=== PATIENT | female | born 1940 | race Caucasian/White ===

== ENCOUNTER 2022-01-20 17:18 | Inpatient (IN) | payer MEDICARE, SELFPAY ==
[~2022-01-20] VITALS: Ht 157.5 cm; Wt 94.0 kg
[2022-01-20] MEDS ORDERED: NS 500 ML IV ONE (22:15)
[2022-01-20] MEDS: NS 1,000 ML IV SCH (22:15)
[2022-01-20 23:01] LABS: BASO # 0.1 10^3/uL (0.0-0.2); BASO % 0.3 % (0.0-1.0); EOS # 0.2 10^3/uL (0.0-0.5); EOS % 1.1 % (0.0-3.0); HEMATOCRIT 32.7 % (36.0-47.0); HEMOGLOBIN 10.8 g/dl (12.0-15.5); LYMPH % 12.6 % (24.0-44.0); MEAN CORPUSCULAR HEMOGLOBIN 30.3 pg (27.0-33.0); MEAN CORPUSCULAR VOLUME 91.6 fl (80.0-96.0); MONO # 1.3 10^3/uL (0.0-0.8); MONO % 8.3 % (2.0-8.0); NEUTROPHILS # 11.9 10^3/uL (1.5-8.5); NEUTROPHILS % 77.1 % (36.0-66.0); PLATELET COUNT, AUTOMATED 223 10^3/uL (150-450); RED BLOOD COUNT 3.57 10^6/uL (4.00-5.40); WHITE BLOOD COUNT 15.5 10^3/uL (4.0-10.0)
[2022-01-20 23:25] LABS: ALBUMIN 2.7 GM/DL (3.2-5.2); ALT/SGPT 14 U/L (12-78); BLOOD UREA NITROGEN 15 MG/DL (7-18); CALCIUM LEVEL 8.3 MG/DL (8.8-10.2); CARBON DIOXIDE LEVEL 22 MEQ/L (21-32); CHLORIDE LEVEL 115 MEQ/L (98-107); CREATININE FOR GFR 0.82 MG/DL (0.55-1.30); GLOMERULAR FILTRATION RATE > 60.0 (>32); GLUCOSE, FASTING 129 MG/DL (70-100); MAGNESIUM LEVEL 2.1 MG/DL (1.8-2.4); POTASSIUM SERUM 3.9 MEQ/L (3.5-5.1); SODIUM LEVEL 146 MEQ/L (136-145); TOTAL PROTEIN 5.8 GM/DL (6.4-8.2)
[2022-01-20 23:59] VITALS: BP 122/58
[2022-01-21] MEDS ORDERED: GLUCOSE 4GM CHEW TABLET PO PRN (00:20)
[2022-01-21] MEDS ORDERED: DEXTROSE 50% 50 ML SYRINGE IV PRN (00:20)
[2022-01-21] MEDS ORDERED: GLUCAGON INJ 1MG VIAL SC PRN (00:20)
[2022-01-21] MEDS ORDERED: DILUENT IV ONE (01:00)
[2022-01-21] MEDS ORDERED: PROTHROMBIN COMPLEX CONCEN IV ONE (01:00)
[2022-01-21 02:10] LABS: HEMATOCRIT 28.9 % (36.0-47.0); HEMOGLOBIN 9.5 g/dl (12.0-15.5)
[2022-01-21 04:00] VITALS: BP 106/49
[2022-01-21] MEDS: NYSTATIN 100,000 UNITS/GM TOPICAL PWD 15 GM TOP SCH ×3 (05:16→21:54)
[2022-01-21] MEDS: INSULIN LISPRO (NovoLOG) PER UNIT SC SCH ×3 (06:27→17:21)
[2022-01-21] MEDS: NS 1,000 ML IV SCH (06:28)
[2022-01-21 08:00] VITALS: BP 124/59
[2022-01-21] MEDS: D5W/0.45% SODIUM CHLORIDE 1,000 ML IV SCH ×2 (08:00→21:53)
[2022-01-21 08:41] LABS: HEMATOCRIT 28.6 % (36.0-47.0); HEMOGLOBIN 9.3 g/dl (12.0-15.5)
[2022-01-21] MEDS ORDERED: AMLO1TAB25 PO (08:43)
[2022-01-21] MEDS ORDERED: APAP325T4 PO (08:43)
[2022-01-21] MEDS ORDERED: SIMV20TA22 PO (08:43)
[2022-01-21] MEDS ORDERED: LEVO50TA5 PO (08:43)
[2022-01-21] MEDS ORDERED: ALLO300T2 PO (08:43)
[2022-01-21] MEDS ORDERED: VITA100093 PO (08:43)
[2022-01-21] MEDS ORDERED: GLIP10TA18 PO (08:43)
[2022-01-21] MEDS ORDERED: POLYOPD OU (08:43)
[2022-01-21] MEDS ORDERED: METO1TAB33 PO (08:43)
[2022-01-21] MEDS ORDERED: FERR1TAB8 PO (08:43)
[2022-01-21] MEDS ORDERED: ELIQ2.5T PO (08:43)
[2022-01-21] MEDS ORDERED: MELA3TAB29 PO (08:43)
[2022-01-21] MEDS ORDERED: MAGN400T35 PO (08:43)
[2022-01-21] MEDS ORDERED: OCUVCAP PO (08:43)
[2022-01-21] MEDS ORDERED: LOSA100T45 PO (08:43)
[2022-01-21] MEDS ORDERED: HOME MED LIST COMPLETE! XX SCH (08:45)
[2022-01-21 08:54] LABS: BLOOD UREA NITROGEN 16 MG/DL (7-18); CALCIUM LEVEL 8.1 MG/DL (8.8-10.2); CARBON DIOXIDE LEVEL 23 MEQ/L (21-32); CHLORIDE LEVEL 116 MEQ/L (98-107); CREATININE FOR GFR 0.78 MG/DL (0.55-1.30); GLOMERULAR FILTRATION RATE > 60.0 (>32); GLUCOSE, FASTING 146 MG/DL (70-100); SODIUM LEVEL 148 MEQ/L (136-145)
[2022-01-21 13:56] LABS: HEMATOCRIT 27.5 % (36.0-47.0); HEMOGLOBIN 8.9 g/dl (12.0-15.5)
[2022-01-21 16:02] VITALS: BP 148/65
[2022-01-21 20:00] VITALS: BP 126/59
[2022-01-21 20:28] LABS: HEMATOCRIT 26.4 % (36.0-47.0); HEMOGLOBIN 8.8 g/dl (12.0-15.5)
[2022-01-22] VITALS (7 sets, daily range): BP systolic 118–177; BP diastolic 59–76
[2022-01-22 02:17] LABS: HEMATOCRIT 27.4 % (36.0-47.0); HEMOGLOBIN 8.8 g/dl (12.0-15.5)
[2022-01-22] MEDS: INSULIN LISPRO (NovoLOG) PER UNIT SC SCH ×3 (08:20→18:18)
[2022-01-22 08:27] LABS: HEMATOCRIT 25.8 % (36.0-47.0); HEMOGLOBIN 8.4 g/dl (12.0-15.5); MEAN CORPUSCULAR HEMOGLOBIN 29.5 pg (27.0-33.0); MEAN CORPUSCULAR HGB CONC 32.6 g/dl (32.0-36.5); MEAN CORPUSCULAR VOLUME 90.5 fl (80.0-96.0); PLATELET COUNT, AUTOMATED 205 10^3/uL (150-450); RED BLOOD COUNT 2.85 10^6/uL (4.00-5.40); WHITE BLOOD COUNT 12.5 10^3/uL (4.0-10.0)
[2022-01-22] MEDS: NYSTATIN 100,000 UNITS/GM TOPICAL PWD 15 GM TOP SCH ×2 (08:31→21:05)
[2022-01-22 08:48] LABS: BLOOD UREA NITROGEN 10 MG/DL (7-18); CALCIUM LEVEL 7.9 MG/DL (8.8-10.2); CARBON DIOXIDE LEVEL 23 MEQ/L (21-32); CHLORIDE LEVEL 116 MEQ/L (98-107); CREATININE FOR GFR 0.66 MG/DL (0.55-1.30); GLOMERULAR FILTRATION RATE > 60.0 (>32); GLUCOSE, FASTING 145 MG/DL (70-100); POTASSIUM SERUM 3.4 MEQ/L (3.5-5.1); SODIUM LEVEL 146 MEQ/L (136-145)
[2022-01-22] MEDS ORDERED: FIORICET TAB PO PRN (09:20)
[2022-01-22] MEDS ORDERED: ACETAMINOPHEN TAB 650MG DOSE (2X325MG) PO PRN (09:20)
[2022-01-22] MEDS: allopurinoL 300 MG TAB PO SCH (12:04)
[2022-01-22] MEDS: D5W/0.45% SODIUM CHLORIDE 1,000 ML IV SCH (12:04)
[2022-01-22] MEDS: LEVOTHYROXINE 50MCG TABLET (0.05MG) PO SCH (12:04)
[2022-01-22 14:40] LABS: HEMATOCRIT 30.6 % (36.0-47.0); HEMOGLOBIN 9.8 g/dl (12.0-15.5); MEAN CORPUSCULAR HEMOGLOBIN 29.7 pg (27.0-33.0); MEAN CORPUSCULAR VOLUME 92.7 fl (80.0-96.0); PLATELET COUNT, AUTOMATED 244 10^3/uL (150-450); WHITE BLOOD COUNT 16.1 10^3/uL (4.0-10.0)
[2022-01-22] MEDS ORDERED: INSULIN LISPRO (NovoLOG) PER UNIT SC SCH (21:00)
[2022-01-22] MEDS ORDERED: RAMELTEON 8 MG TAB (ROZEREM) PO SCH (21:00)
[2022-01-22] MEDS ORDERED: SIMVASTATIN 20 MG TAB PO SCH (21:00)
[2022-01-23 00:20] VITALS: BP 141/64
[2022-01-23] MEDS: D5W/0.45% SODIUM CHLORIDE 1,000 ML IV SCH (02:32)
[2022-01-23 04:37] VITALS: BP 134/60
[2022-01-23 05:58] LABS: HEMATOCRIT 25.3 % (36.0-47.0); MEAN CORPUSCULAR HEMOGLOBIN 29.4 pg (27.0-33.0); MEAN CORPUSCULAR HGB CONC 31.6 g/dl (32.0-36.5); PLATELET COUNT, AUTOMATED 210 10^3/uL (150-450); RED BLOOD COUNT 2.72 10^6/uL (4.00-5.40)
[2022-01-23] MEDS: LEVOTHYROXINE 50MCG TABLET (0.05MG) PO SCH (05:59)
[2022-01-23 06:28] LABS: BLOOD UREA NITROGEN 7 MG/DL (7-18); CALCIUM LEVEL 7.9 MG/DL (8.8-10.2); CARBON DIOXIDE LEVEL 21 MEQ/L (21-32); CHLORIDE LEVEL 117 MEQ/L (98-107); CREATININE FOR GFR 0.76 MG/DL (0.55-1.30); GLOMERULAR FILTRATION RATE > 60.0 (>32); GLUCOSE, FASTING 159 MG/DL (70-100); SODIUM LEVEL 146 MEQ/L (136-145)
[2022-01-23] MEDS: allopurinoL 300 MG TAB PO SCH (08:44)
[2022-01-23] MEDS: NYSTATIN 100,000 UNITS/GM TOPICAL PWD 15 GM TOP SCH (08:44)
[2022-01-23] MEDS: INSULIN LISPRO (NovoLOG) PER UNIT SC SCH ×2 (08:45→12:35)
[2022-01-23 08:59] VITALS: BP 132/60
[2022-01-23 12:37] LABS: HEMATOCRIT 29.5 % (36.0-47.0); HEMOGLOBIN 9.7 g/dl (12.0-15.5); MEAN CORPUSCULAR HEMOGLOBIN 31.3 pg (27.0-33.0); MEAN CORPUSCULAR HGB CONC 32.9 g/dl (32.0-36.5); MEAN CORPUSCULAR VOLUME 95.2 fl (80.0-96.0); PLATELET COUNT, AUTOMATED 284 10^3/uL (150-450); WHITE BLOOD COUNT 14.4 10^3/uL (4.0-10.0)
[2022-01-23] MEDS ORDERED: METO1TAB7 PO (13:02)
[2022-01-23] MEDS ORDERED: NYST10006 TOP (13:02)
[2022-01-23] MEDS ORDERED: LOSA50TA28 PO (13:02)
[2022-01-23] MEDS ORDERED: POTASSIUM CHLORIDE 10MEQ SR TABLET PO ONE (13:10)
== END 2022-01-23 14:17 | disposition home health service (06) | DRG 378 ==
LOC: EDBD 20:29 → M PCU 20:29
PROVIDERS: ADMIT Internal Medicine; ATTEND Internal Medicine
DX: K57.93 Diverticulitis of intestine, part unspecified, without perforation or abscess with bleeding (principal); D62 Acute posthemorrhagic anemia; M10.9 Gout, unspecified; E03.9 Hypothyroidism, unspecified; Z79.01 Long term (current) use of anticoagulants; I48.91 Unspecified atrial fibrillation; I10 Essential (primary) hypertension; E11.9 Type 2 diabetes mellitus without complications; L30.4 Erythema intertrigo; Z79.899 Other long term (current) drug therapy; Z88.6 Allergy status to analgesic agent; Z88.8 Allergy status to other drugs, medicaments and biological substances; I25.2 Old myocardial infarction; Z98.41 Cataract extraction status, right eye; Z98.42 Cataract extraction status, left eye

== ENCOUNTER 2023-03-21 18:42 | Inpatient (IN) | payer MEDICARE ==
[~2023-03-21] VITALS: Ht 165.1 cm; Wt 86.6 kg
[~2023-03-21 18:42] MED LIST: ALLO300T2 PO; AMLO1TAB25 PO; APAP325T4 PO; ARTIDRO4 OU; ELIQ2.5T PO; FERR1TAB8 PO; GLIP10TA18 PO; LEVO50TA5 PO; LOSA100T46 PO; LOSA50TA28 PO; MAGN400T35 PO; MELA3TAB29 PO; METO1TAB33 PO; METO1TAB7 PO; NYST10006 TOP; OCUVCAP PO; SIMV20TA22 PO; VITA100093 PO
[2023-03-21 22:41] VITALS: BP 156/96; TEMP 98.1; O2SAT 98
[2023-03-22] MEDS ORDERED: ACETAMINOPHEN TAB 650MG DOSE (2X325MG) PO PRN (00:50)
[2023-03-22] MEDS ORDERED: MOM 30ML SUSPENSION UDC PO PRN (00:50)
[2023-03-22] MEDS ORDERED: cefTRIAXone SOD 2GM VIAL IM SCH (00:50)
[2023-03-22] MEDS ORDERED: GLUCOSE 4GM CHEW TABLET PO PRN (00:55)
[2023-03-22] MEDS ORDERED: DEXTROSE 50% 50ML SYRINGE IV PRN (00:55)
[2023-03-22] MEDS ORDERED: GLUCAGON INJ 1MG VIAL SC PRN (00:55)
[2023-03-22 02:09] LABS: HEMATOCRIT 35.8 % (36.0-47.0); HEMOGLOBIN 11.7 g/dl (12.0-15.5); MEAN CORPUSCULAR HEMOGLOBIN 29.5 pg (27.0-33.0); MEAN CORPUSCULAR HGB CONC 32.7 g/dl (32.0-36.5); MEAN CORPUSCULAR VOLUME 90.4 fl (80.0-96.0); PLATELET COUNT, AUTOMATED 274 10^3/uL (150-450); RED BLOOD COUNT 3.96 10^6/uL (4.00-5.40); WHITE BLOOD COUNT 11.2 10^3/uL (4.0-10.0)
[2023-03-22 02:33] LABS: ALBUMIN 2.4 G/DL (3.2-5.2); ALKALINE PHOSPHATASE 157 U/L (46-116); ALT/SGPT 37 U/L (7.0-40); AST/SGOT 36 U/L (<34); BILIRUBIN,TOTAL 0.6 MG/DL (0.3-1.2); BLOOD UREA NITROGEN 12 MG/DL (9-23); CALCIUM LEVEL 8.5 MG/DL (8.3-10.6); CARBON DIOXIDE LEVEL 28 MMOL/L (20-31); CHLORIDE LEVEL 109 MMOL/L (98-107); CREATININE FOR GFR 0.79 MG/DL (0.55-1.30); GLOMERULAR FILTRATION RATE > 60.0 (>32); GLUCOSE, FASTING 84 MG/DL (74-106); POTASSIUM SERUM 3.8 MMOL/L (3.5-5.1); SODIUM LEVEL 147 MMOL/L (136-145); TOTAL PROTEIN 5.9 G/DL (5.7-8.2)
[2023-03-22 05:13] VITALS: BP 168/96; TEMP 98.6; O2SAT 98
[2023-03-22] MEDS ORDERED: LEVOTHYROXINE 50MCG TABLET (0.05MG) PO SCH (06:00)
[2023-03-22] MEDS ORDERED: ATOR1TAB21 PO (06:38)
[2023-03-22] MEDS ORDERED: LOSA50TA28 PO (06:39)
[2023-03-22] MEDS ORDERED: METO1TAB7 PO (06:39)
[2023-03-22] MEDS ORDERED: POTA-151 PO (06:39)
[2023-03-22] MEDS ORDERED: HOME MED LIST COMPLETE! XX SCH (06:40)
[2023-03-22] MEDS: INSULIN LISPRO (NovoLOG) PER UNIT SC SCH ×2 (07:30→12:39)
[2023-03-22] MEDS ORDERED: RAMELTEON 8 MG TAB (ROZEREM) PO PRN (07:35)
[2023-03-22] MEDS ORDERED: VITAMIN D 1,000 INTERNATIONAL UNITS TABLET PO SCH (09:00)
[2023-03-22] MEDS ORDERED: LOSARTAN 50MG TABLET PO SCH (09:00)
[2023-03-22] MEDS ORDERED: allopurinoL 300 MG TAB PO SCH (09:00)
[2023-03-22] MEDS ORDERED: cefTRIAXone SOD 2 GM in D5W MINI-BAG PLUS 50 ML IV SCH (09:00)
[2023-03-22] MEDS ORDERED: APIXABAN 2.5 MG TAB (ELIQUIS) PO SCH (09:00)
[2023-03-22] MEDS ORDERED: POTASSIUM CHLORIDE 10MEQ SR TABLET PO SCH (09:00)
[2023-03-22] MEDS ORDERED: MAGNESIUM OXIDE 400MG TAB (MAG-OX) PO SCH (09:00)
[2023-03-22 09:45] VITALS: BP 121/77
[2023-03-22 14:00] VITALS: BP 153/89; TEMP 97.9; O2SAT 97
[2023-03-22] MEDS ORDERED: OCUVITE 1 TAB PO SCH (21:00)
[2023-03-22] MEDS ORDERED: ATORVASTATIN 20 MG TAB PO SCH (21:00)
[2023-03-22] MEDS ORDERED: METOPROLOL SUCC (TopROL XL) 50MG **XL** TAB PO SCH (21:00)
[2023-03-22] MEDS ORDERED: INSULIN LISPRO (NovoLOG) PER UNIT SC SCH (21:00)
== END 2023-03-22 17:20 | disposition short-term general hospital (02) | DRG 872 ==
LOC: M MSPAV 22:42
PROVIDERS: ADMIT Student in an Organized Health Care Education/Training Program; ATTEND Family Medicine
DX: R78.81 Bacteremia (principal); B95.1 Streptococcus, group B, as the cause of diseases classified elsewhere; I10 Essential (primary) hypertension; F03.90 Unspecified dementia, unspecified severity, without behavioral disturbance, psychotic disturbance, mood disturbance, and anxiety; I48.91 Unspecified atrial fibrillation; E03.9 Hypothyroidism, unspecified; E11.9 Type 2 diabetes mellitus without complications; I25.10 Atherosclerotic heart disease of native coronary artery without angina pectoris; M10.9 Gout, unspecified; Z66 Do not resuscitate; Z79.899 Other long term (current) drug therapy; Z88.6 Allergy status to analgesic agent; Z88.8 Allergy status to other drugs, medicaments and biological substances; Z85.828 Personal history of other malignant neoplasm of skin; D50.9 Iron deficiency anemia, unspecified; Z98.41 Cataract extraction status, right eye; Z98.42 Cataract extraction status, left eye